=== PATIENT | male | born 1995 | race African-American/Black ===

== ENCOUNTER 2019-02-21 11:00 | Emergency (ER) | payer OTHER ==
[~2019-02-21] VITALS: Ht 152.4 cm; Wt 54.4 kg
[2019-02-21 12:04] LABS: POTASSIUM 3.9 mmol/L (3.6-5.2); SODIUM 140 mmol/L (136-145)
[2019-02-21 12:13] LABS: PLATELET COUNT 180 K/uL (142-355)
[2019-02-21 16:20] VITALS: BP 166/90; TEMP 98.1
== END 2019-02-21 16:20 | disposition home or self-care (01) ==
LOC: ED 11:00
PROVIDERS: Student in an Organized Health Care Education/Training Program
DX: E86.0 Dehydration (principal); M62.82 Rhabdomyolysis; R00.1 Bradycardia, unspecified
CPT/HCPCS: 36415; 80053; 81000; 82150; 82550; 82553; 83690; 84484; 85027; 93005; 96360; 96361; 96365; 99284